=== PATIENT | male | born 1980 | race American Indian/Alaskan Native ===

== ENCOUNTER 2018-01-09 15:49 | Emergency (ER) | payer BC ==
[2018-01-09 16:03] VITALS: BP 138/56; PULSE 72; RESP 18; TEMP 98; O2SAT 97
--- NOTE | 2018-01-09 16:16 | ED PDOC ---
Arrival/HPI - General Chief Complaint: Back Pain Time Seen by Provider: 01/09/18 16:04 Historian: Patient - History of Present Illness Narrative History of Present Illness (Text): 01/09/18 16:16 This 37 yo male who denies pmh, presents to this Emergency department complaining of left lower back pain x 2 days. 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 Patient denies heavy lifting, or trauma. Patient denies headache, sob, cp, fever, neck pain, abdominal pain, urinary symptoms, GI/ incontinence, saddle anesthesia, urinary retention, or abnormal gait. Time/Duration: Other (see hpi) Context: Home Past Medical History - Provider Review Nursing Documentation Reviewed: Yes - Psychiatric Hx Substance Use: No - Surgical History Hx Orthopedic Surgery: Yes (Et Achillis tendon repair) Family/Social History - Physician Review Nursing Documentation Reviewed: Yes Family/Social History: Other (noncontributory) Smoking Status: Never Smoked Hx Alcohol Use: Yes Frequency of alcohol use: Socially Hx Substance Use: No Allergies/Home Meds Allergies/Adverse Reactions: Allergies No Known Allergies Allergy (Verified 01/09/18 16:01) Review of Systems - Review of Systems Constitutional: Normal. absent: Fatigue, Weight Change, Fevers, Night Sweats Eyes: Normal ENT: Normal Respiratory: Normal. absent: SOB, Cough, Sputum Cardiovascular: Normal. absent: Chest Pain, Palpitations Gastrointestinal: Normal. absent: Abdominal Pain, Nausea, Vomiting Genitourinary Male: Normal. absent: Dysuria, Frequency, Hematuria Musculoskeletal: Back Pain. absent: Arthralgias, Neck Pain, Joint Swelling, Myalgias Skin: Normal. absent: Rash Neurological: Normal, Other (patient denies headache today). absent: Dizziness Endocrine: Normal Hemo/Lymphatic: Normal Psychiatric: Normal Physical Exam Vital Signs Temp Pulse Resp BP Pulse Ox 01/09/18 16:01 98 F 72 18 138/56 L 97 Temperature: Afebrile Blood Pressure: Normal Pulse: Regular Respiratory Rate: Normal Appearance: Positive for: Well-Appearing, Non-Toxic, Comfortable Pain Distress: None Mental Status: Positive for: Alert and Oriented X 3 - Systems Exam Head: Present: Atraumatic, Normocephalic Mouth: Present: Moist Mucous Membranes Neck: Present: Normal Range of Motion, Trachea Midline. No: Meningeal Signs, MIDLINE TENDERNESS, Paraspinal Tenderness Back: Present: Normal Inspection, Paraspinal Tenderness (mild left paravertebral tenderness. No skin rash. No vertebral point tenderness. No vertebral step off.). No: CVA Tenderness, Midline Tenderness Upper Extremity: Present: Normal Inspection, Normal ROM, Capillary Refill < 2s Lower Extremity: Present: Normal Inspection, NORMAL PULSES, Normal ROM, Neurovascularly Intact, Capillary Refill < 2 s. No: Cyanosis, Tita's Sign, Tenderness, Swelling, Erythema, Deformity, Temperature Abnormalties Neurological: Present: GCS=15, CN II-XII Intact, Speech Normal, Motor Func Grossly Intact, Normal Sensory Function, Normal Cerebellar Funct, Gait Normal, Memory Normal, Other (No neuro focal deficits) Skin: Present: Warm, Dry, Normal Color. No: Rashes Psychiatric: Present: Alert, Oriented x 3, Normal Insight, Normal Concentration Medical Decision Making ED Course and Treatment: 01/09/18 16:42 Re-evaluation. Patient feels better. Discussed results and plan with patient who expresses understanding. All questions answered and there is agreement with the plan to discharge home with instructions. Patient stable for discharge. Return if symptoms persist or worsen. Patient was recommended to f/u pmd, and to call workers comp for further medical care . To return to emergency if symptoms worsen, fever, headache, diplopia, or neck pain. Re-evaluation Time: 16:42 Reassessment Condition: Re-examined, Improved Disposition/Present on Arrival - Present on Arrival Any Indicators Present on Arrival: No History of DVT/PE: No History of Uncontrolled Diabetes: No Urinary Catheter: No History of Decub. Ulcer: No History Surgical Site Infection Following: None - Disposition Have Diagnosis and Disposition been Completed?: Yes Diagnosis: Lower back pain Disposition: HOME/ ROUTINE Disposition Time: 16:42 Patient Plan: Discharge Patient Problems: Current Active Problems Problem Status Onset Lower back pain Acute Condition: GOOD Discharge Instructions (ExitCare): Low Back Pain (DC) Additional Instructions: Call private doctor for follow up visit in 1-2 days. Take medication as instructed with food. Return to emergency if symptoms worsen. Practice good body mechanics, return to Emergency department if headache occurs, fever or worsening symptoms. Prescriptions: diaZEpam [Valium] 5 mg PO DAILY #5 tab Naproxen 500 mg PO BID PRN #14 tablet PRN Reason: Pain, Severe (8-10) traMADol [Ultram] 50 mg PO TID PRN #15 tab PRN Reason: Pain, Severe (8-10) Referrals: Alessandro Hong MD [Primary Care Provider] - Follow up with primary Forms: [employer] [facility] (Montenegrin), WORK NOTE
== END 2018-01-09 16:54 | disposition home or self-care (01) ==
LOC: ED 15:49
DX: M54.5 Low back pain (principal)
CPT/HCPCS: 96372; 99282; J1885

== ENCOUNTER 2018-05-08 11:58 | Emergency (ER) | payer BC ==
[2018-05-08 12:14] VITALS: RESP 18; TEMP 99.3
[2018-05-08] MEDS ORDERED: Oxycodone/Acetaminophen 5/325 mg Tab PO STA (12:52)
--- NOTE | 2018-05-08 12:55 | ED PDOC ---
Arrival/HPI - General Chief Complaint: Abdominal Pain Time Seen by Provider: 05/08/18 12:06 Historian: Patient - History of Present Illness Narrative History of Present Illness (Text): 05/08/18 12:53 pt p/w + 2 days onset of right lower back/flank region pain, radiating down to his right buttock and ending at approximately near posterior right mid-thigh; pt states he has been working alot more lately. Pt works at the local [employer] and due to the graduations ceremonies, pt has been moving alot more lately; pt felt a pain 2 days ago, and as he continued to work yesterday, felt the pain became even more severe; pt states pain is at most 7-8/10; pt states otherwise no fall/trauma/sick contact, no travel; pt states no fever/chills/sweats, no cp/ sob/palpitations, no abd pain, no n/v, no numbness/tingling, no urinary/bowel changes, no urinary/bowel incontinence, no penile/rectal numbness/tingling, no focal extremity weakness, no other complaints; pt is here for further evaluation. pt's without other complaints. pt remained able to walk. PCP: Hal Past medical history: NONE Past surg hx: right Achilles surgery Family hx: mother with hx of kidney stones Time/Duration: < week (2 days) Symptom Onset: Sudden Symptom Course: Worsening Quality: Aching, Tightness, Cramping Severity Level: 8, Severe Activities at Onset: Other (with movement/changing positions) Context: Home, Work Past Medical History - Provider Review Nursing Documentation Reviewed: Yes - Travel History Have you recently traveled outside [place] w/in the past 3 mons?: No - Past History Past History: Non-Contributing - Infectious Disease Hx of Infectious Diseases: None - Psychiatric Hx Substance Use: No - Surgical History Hx Orthopedic Surgery: Yes (Et Achillis tendon repair) - Anesthesia Hx Anesthesia: Yes Hx Anesthesia Reactions: No Family/Social History - Physician Review Nursing Documentation Reviewed: Yes Family/Social History: No Known Family HX Smoking Status: Never Smoked Hx Alcohol Use: Yes Hx Substance Use: No Hx Substance Use Treatment: No Allergies/Home Meds Allergies/Adverse Reactions: Allergies No Known Allergies Allergy (Verified 05/08/18 12:14) Review of Systems - Review of Systems Constitutional: Normal Eyes: Normal ENT: Normal Respiratory: Normal. absent: SOB Cardiovascular: Normal. absent: Chest Pain Gastrointestinal: Normal. absent: Abdominal Pain, Nausea, Vomiting Genitourinary Male: Normal. absent: Dysuria, Frequency, Hematuria Musculoskeletal: Back Pain, Other (right flank/back pain) Skin: Normal. absent: Rash Neurological: Normal. absent: Headache, Dizziness Endocrine: Normal Hemo/Lymphatic: Normal Psychiatric: Normal Physical Exam - Physical Exam Narrative Physical Exam (Text): 05/08/18 12:55 General: alert/awake, GCS = 15, oriented x 3, resting in bed, uncomfortable, cooperative, interactive; mild distress due to pain (worse with changing position) Head: NC/AT EYE: PERRLA, EOMI, sclera anicteric, no nystagmus, no photophobia; visual field intact b/l Facial: WNL Oral: uvula/tongue are midline, no exudate/lesions, no drooling/stridor, no dysphonia; intact dentitions; moist oral mucosa NECK: intact ROM, no midline tenderness, no nuchal rigidity, no meningeal signs ; no step off Chest: CTA b/l, no w/r/r; no tachypenia, no accessory muscle use noted Chest Wall: no crepitus, no lesions, no gross deformities, no focal tenderness Cardiac: +S1, +S2, no m/r/r, no tachycardia Abdominal: +BS, soft/nd/nt, well nourished patient; no masses/rebound/guarding/ rigidity; no sawant's sign, no mcburney's point tenderness Extremities: intact ROM, strength 5/5 grossly intact in all limbs, neurovasc intact b/l; + ambulatory; reflex +2/2 BACK: no step off, no midline tenderness, NO crepitus, no gross deformities noted; Intact ROM; + right lower para-lumbar/flank tenderness; mild right CVAT SKIN: cap refill < 1 sec, no ulcerations, no petechiae, no rashes; no gross pallor NEURO: CNII-XII WNL, no facial asymmetries, no slurr speech, oriented x 3 NIH stroke scale ~ 0 Psych: normal insight, normal affect; follows command with ease Vital Signs Reviewed: Yes Vital Signs Temp Pulse Resp BP Pulse Ox 05/08/18 12:11 99.3 F 86 18 109/64 98 Temperature: Afebrile Blood Pressure: Normal Pulse: Regular Respiratory Rate: Normal Appearance: Positive for: Well-Appearing, Non-Toxic, Uncomfortable. No: Comfortable, Ill-Appearing, Unkept Pain Distress: Mild Mental Status: Positive for: Alert and Oriented X 3 - Systems Exam Head: Present: Atraumatic, Normocephalic Medical Decision Making ED Course and Treatment: 05/08/18 12:45 Impression: right lower back pain/flank pain i have consider all the differential diagnosis regarding pt's chief medical complaints/clinical findings, including but are not limited to: right lower back pain/flank pain, atrumatic A/P: right lower back pain/flank pain, atrumatic - ua - supportive care - observe/reevaluation 05/08/18 13:20 pt is doing well pt states his pain is much improved, down to 4/10 pt remains able to stand and walk pt is made aware of his medical results pt is encouraged proper lifting techniques pt is encouraged no heavy lifting, avoid prolonged standing pt will f/u as directed pt will be discharged home Re-evaluation Time: 13:30 Reassessment Condition: Improved - Lab Interpretations Lab Results: Lab Results 05/08/18 12:38: Urine Color Yellow, Urine Appearance Clear, Urine pH 6.0, Ur Specific [place] >= 1.030, Urine Protein Trace H, Urine Glucose (UA) Negative, Urine Ketones Negative, Urine Blood Negative, Urine Nitrate Negative, Urine Bilirubin Negative, Urine Urobilinogen 0.2, Ur Leukocyte Esterase Negative, Urine RBC 0 - 2, Urine WBC 0 - 2, Ur Epithelial Cells None, Urine Bacteria Few I have reviewed the lab results: Yes Interpretation: All labs normal - Medication Orders Current Medication Orders: Discontinued Medications Diazepam (Valium) 5 mg PO ONCE ONE PRN Reason: Protocol Stop: 05/08/18 12:54 Last Admin: 05/08/18 12:59 Dose: 5 mg Ibuprofen (Motrin Tab) 600 mg PO STAT STA Stop: 05/08/18 12:53 Last Admin: 05/08/18 12:59 Dose: 600 mg Oxycodone/Acetaminophen (Percocet 5/325 Mg Tab) 1 tab PO STAT STA Stop: 05/08/18 12:53 Last Admin: 05/08/18 12:59 Dose: 1 tab MAR Pain Assessment Document 05/08/18 12:59 GMD (Rec: 05/08/18 12:59 GMD [id number]) Pain Reassessment Is this a pain reassessment? No Disposition/Present on Arrival - Present on Arrival Any Indicators Present on Arrival: No History of DVT/PE: No History of Uncontrolled Diabetes: No Urinary Catheter: No History of Decub. Ulcer: No History Surgical Site Infection Following: None - Disposition Have Diagnosis and Disposition been Completed?: Yes Diagnosis: Lower back pain Disposition: HOME/ ROUTINE Disposition Time: 14:15 Patient Plan: Discharge Patient Problems: Current Active Problems Problem Status Onset Lower back pain Acute Condition: STABLE Discharge Instructions (ExitCare): Low Back Pain in Adults Print Language: LAO Additional Instructions: Make sure to see your doctor in 1-2 days DRINK PLENTY OF FLUIDS take your medications as prescribed AVOID heavy lifting avoid prolonged standing RETURN TO ED IF worse pain, cant breath, persistent vomiting, high fever >101- 102 for hours, altered behavior, slurr speech, facial changes, focal weakness ( arm/leg or both), unable to urinate, heavy/persistent bleeding, passing out, chest pain, or other medical emergencies Prescriptions: diaZEpam [Valium] 5 mg PO TID PRN #12 tab PRN Reason: Muscle Spasm Ibuprofen [Motrin] 600 mg PO QID PRN #30 tab PRN Reason: Pain, Mild (1-3) oxyCODONE/Acetaminophen [Percocet 5/325 mg Tab] 1 tab PO TID PRN #10 tab PRN Reason: Pain, Moderate (4-7) Referrals: Billy Sher III, MD [Medical Doctor] - Follow up with primary [facility] [facility] [place] [Outside] - Follow up with primary [facility] [Outside] - Follow up with primary [facility] [place] - Follow up with primary Forms: [employer] (German), WORK NOTE
[2018-05-08 12:58] LABS: URINE BILIRUBIN NEGATIVE (NEGATIVE); URINE BLOOD NEGATIVE (NEGATIVE); URINE GLUCOSE (UA) NEGATIVE (NEGATIVE); URINE LEUKOCYTE ESTERASE NEGATIVE Leu/uL (NEGATIVE); URINE PROTEIN TRACE mg/dL (<30 mg/dL); URINE UROBILINOGEN 0.2 E.U./dL (<1 E.U./dL)
[2018-05-08 13:02] LABS: URINE APPEARANCE CLEAR (CLEAR); URINE COLOR YELLOW (YELLOW)
[2018-05-08 13:17] LABS: URINE BACTERIA FEW (NEG); URINE RBC 0 - 2 /hpf (0-2); URINE WBC 0 - 2 /hpf (0-6)
[2018-05-08 14:19] VITALS: BP 120/78; PULSE 68; O2SAT 99
== END 2018-05-08 14:19 | disposition home or self-care (01) ==
LOC: ED 11:58
DX: M54.5 Low back pain (principal)

== ENCOUNTER 2018-10-14 07:56 | Emergency (ER) | payer BC ==
[2018-10-14 08:09] VITALS: BMI 33.1
[2018-10-14 08:10] VITALS: RESP 18; TEMP 98.3
[2018-10-14] MEDS ORDERED: Lidocaine 5% Patch TD ONE (08:20)
--- NOTE | 2018-10-14 08:28 | ED PDOC ---
Arrival/HPI - General Chief Complaint: Back Pain Historian: Patient - History of Present Illness Narrative History of Present Illness (Text): 10/14/18 08:19 38 y/o M w/ pmhx of a lower left herniated disk presents to the emergency room complaining of lower back pain radiating to both his legs since yesterday. Patient reports pain occurs when walking and laying on his stomach. Patient notes he went to the ER last week for lower back pain and was prescribed medication that provided some relief. 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 Patient reports having a bowel movement yesterday and denies any urinary output changes, fever, chills, or any other complaints. PMD: Dr. Almeida Time/Duration: 24 hours (yesterday) Symptom Onset: Gradual Symptom Course: Unchanged Activities at Onset: Light Context: Home Past Medical History - Provider Review Nursing Documentation Reviewed: Yes - Past History Past History: Non-Contributing - Infectious Disease Hx of Infectious Diseases: None - Psychiatric Hx Substance Use: No - Surgical History Hx Orthopedic Surgery: Yes (right Achillis tendon repair) - Anesthesia Hx Anesthesia: Yes Hx Anesthesia Reactions: No Hx Malignant Hyperthermia: No Family/Social History - Physician Review Nursing Documentation Reviewed: Yes Family/Social History: No Known Family HX Smoking Status: Never Smoked Hx Alcohol Use: No Hx Substance Use: No Hx Substance Use Treatment: No Allergies/Home Meds Allergies/Adverse Reactions: Allergies No Known Allergies Allergy (Verified 05/08/18 12:14) Review of Systems - Physician Review All systems were reviewed & negative as marked: Yes - Review of Systems Constitutional: absent: Fevers, Night Sweats Genitourinary Male: absent: Urinary Output Changes Musculoskeletal: Back Pain (lower back pain radiating to both legs) Physical Exam Vital Signs Reviewed: Yes Vital Signs Temp Pulse Resp BP Pulse Ox 10/14/18 08:09 98.3 F 72 18 129/88 97 Temperature: Afebrile Blood Pressure: Normal Pulse: Regular Respiratory Rate: Normal Appearance: Positive for: Well-Appearing, Non-Toxic - Systems Exam Head: Present: Atraumatic, Normocephalic Pupils: Present: PERRL Extroacular Muscles: Present: EOMI Conjunctiva: Present: Normal Neck: Present: Normal Range of Motion Respiratory/Chest: Present: Clear to Auscultation, Good Air Exchange. No: Respiratory Distress, Accessory Muscle Use Cardiovascular: Present: Regular Rate and Rhythm, Normal S1, S2. No: Murmurs Back: No: Midline Tenderness, Paraspinal Tenderness, Pain with Leg Raise (straight leg exam - negative bilaterally) Neurological: Present: GCS=15, CN II-XII Intact, Speech Normal Skin: Present: Warm, Dry, Normal Color. No: Rashes Psychiatric: Present: Alert, Oriented x 3, Normal Insight, Normal Concentration Medical Decision Making ED Course and Treatment: 10/14/18 08:23 Impression: 38 y/o M presenting to the emergency department with lower back pain. Differential Diagnosis included but are not limited to: - lumbar stenosis - sciatica - herniated disk Plan: -- Valium -- Toradol -- Lidoderm -- Reassess and disposition Prior Visits: Notes and results from previous visits were reviewed. Progress Notes: - Scribe Statement The provider has reviewed the documentation as recorded by the Scribe Emani Villa All medical record entries made by the Scribe were at my direction and personally dictated by me. I have reviewed the chart and agree that the record accurately reflects my personal performance of the history, physical exam, medical decision making, and the department course for this patient. I have also personally directed, reviewed, and agree with the discharge instructions and disposition. Disposition/Present on Arrival - Present on Arrival Any Indicators Present on Arrival: No History of DVT/PE: No History of Uncontrolled Diabetes: No Urinary Catheter: No History of Decub. Ulcer: No History Surgical Site Infection Following: None - Disposition Have Diagnosis and Disposition been Completed?: Yes Diagnosis: Sciatica, Lower back pain Disposition: HOME/ ROUTINE Disposition Time: 09:20 Patient Plan: Discharge Condition: IMPROVED Discharge Instructions (ExitCare): Sciatica Exercises, Sciatica (DC) Print Language: VATICAN CITIZEN Additional Instructions: All medical record entries made by the Scribe were at my direction and personally dictated by me. I have reviewed the chart and agree that the record accurately reflects my personal performance of the history, physical exam, medical decision making, and the department course for this patient. I have also personally directed, reviewed, and agree with the discharge instructions and disposition. Please use muscle relaxant and narcotic medication ONLY at home. DO NOT operate heavy machinery for 4 hours after taking medication. Please follow up with the neurologist indicated on your discharge paperwork for treatment. Please follow up with the neurosurgeon for MRI Prescriptions: Diazepam [Valium] 2 mg PO PRN PRN #4 tablet PRN Reason: Muscle Spasm Lidocaine 5% [Lidoderm] 1 each TP Q12 #5 patch Referrals: Mike Duncan MD [Staff Provider] - Follow up with primary Billy Sher III, MD [Medical Doctor] - Follow up with primary [facility] [place] - Follow up with primary Forms: [employer] (Singaporean), WORK NOTE
[2018-10-14 09:43] VITALS: BP 115/67; PULSE 68; O2SAT 96
== END 2018-10-14 09:30 | disposition home or self-care (01) ==
LOC: ED 07:56
DX: M54.40 Lumbago with sciatica, unspecified side (principal)
CPT/HCPCS: 96372; 99283; J1885